=== PATIENT | female | born 1945 | race American Indian/Alaskan Native ===

== ENCOUNTER 2018-11-23 14:03 | Emergency (ER) | payer SELFPAY ==
--- NOTE | 2018-11-23 14:22 | Emergency Department Report ---
Chief Complaint: Dizziness Stated Complaint: BALANCE OFF/DIZZY Time Seen by Provider: 11/23/18 14:17 - HPI History of Present Illness: This is a 73 y.o. female that presents with dizziness. Patient is visiting here from [place]. Patient had an appointment with [facility] this morning. Patient fell in August in [place] and once here. Patient daughter states her mom is not herself and concerned. - Exam Vital Signs: Vital Signs 11/23/18 14:16 Temperature 97.9 F Pulse Rate 79 Respiratory 20 Rate Blood Pressure 149/92 O2 Sat by Pulse 100 Oximetry MSE screening note: Focused history and physical exam performed. Due to findings the following was ordered: labs, ekg, CT of head ED Disposition for MSE Condition: Stable
[2018-11-23 14:52] LABS: Basophils % (Auto) 0.5 % (0.0-1.8); Eosinophils # (Auto) 0.1 K/mm3 (0.0-0.4); Eosinophils % (Auto) 1.3 % (0.0-4.3); Hematocrit 40.4 % (30.3-42.9); Hemoglobin 13.3 gm/dl (10.1-14.3); Lymphocytes # (Auto) 2.1 K/mm3 (1.2-5.4); Lymphocytes % (Auto) 28.6 % (13.4-35.0); Mean Corpuscular HGB Conc 33 % (30-34); Mean Corpuscular Volume 88 fl (79-97); Monocytes # (Auto) 0.5 K/mm3 (0.0-0.8); Monocytes % (Auto) 6.4 % (0.0-7.3); Platelet Count 235 K/mm3 (140-440); Red Blood Count 4.62 M/mm3 (3.65-5.03); Red Cell Distribution Width 14.1 % (13.2-15.2)
--- NOTE | 2018-11-23 15:11 | Cat Scan Report ---
CT HEAD WITHOUT CONTRAST INDICATION: Dizziness, fall. COMPARISON: None similar at this institution. FINDINGS: Noncontrast head CT demonstrates age-appropriate symmetric, mildly enlarged ventricles and sulci. Mild periventricular white matter hypodense small vessel ischemic disease. No definite acute infarct, hemorrhage, mass effect or midline shift. No abnormal extra-axial fluid collections. Normal posterior fossa with preserved basilar cisterns. Normal imaged eye globes. A 0.8 cm left maxillary sinus mucus retention cyst or polyp anteriorly partially imaged. Clear remainder imaged paranasal sinuses and mastoid air cells. Normal calvarium and scalp. Mandible may be edentulous. CONCLUSION: No acute intracranial CT abnormality with age-appropriate atrophy and few other findings, as described. Thank you for the opportunity to participate in this patient's care.
[2018-11-23 15:20] LABS: BUN/Creatinine Ratio 19; Blood Urea Nitrogen 13 mg/dL (7-17); Calcium 9.5 mg/dL (8.4-10.2); Hemolysis Index 19
--- NOTE | 2018-11-23 16:23 | Emergency Department Report ---
ED Neuro Deficit HPI - General Chief Complaint: Dizziness Stated Complaint: BALANCE OFF/DIZZY Time Seen by Provider: 11/23/18 14:17 Source: patient, family, RN notes reviewed Mode of arrival: Ambulatory Limitations: Physical Limitation - History of Present Illness Initial Comments: This is a 73-year-old female, not known to this provider previously. She recently moved here from [place]. She does not have a local primary care doctor. She denies chronic medical conditions that she is aware of. She is brought to the hospital by her daughter for evaluation of unsteady gait for one and half to 2 weeks. This is a painless phenomenon. Patient and daughter indicate that the patient has been staggering, and been off balance. She denies physical pain. The daughter attempted to take the patient to an outpatient [facility] Center earlier on today, but reports that an excessive amount of documentation and paperwork was required, and she felt it would be more prudent to seek emergency evaluation for the sake of expediency. The patient currently denies headache, neck pain, chest pain, abdominal pain, shortness of breath, focal extremity weakness, denies loss of vision, and denies bladder or bowel retention, incontinence. -: Gradual, days(s) Location: ataxia Presenting Symptoms: Absent: Weak/Paralyzed One Side, Sudden, Severe Headache, Blurred/Loss of Vision, Facial Droop/Numbness, Unable to Speak Clearly, Altered Mental Status History of same: No Place: home Severity: moderate Improves With: none Worsens With: none On Anticoagulants: No Context: gradual onset Associated Symptoms: denies other symptoms - Related Data Allergies/Adverse Reactions: Allergies Allergy/AdvReac Type Severity Reaction Status Date / Time No Known Allergies Allergy Unverified 11/23/18 14:15 ED Review of Systems ROS: Stated complaint: BALANCE OFF/DIZZY Other details as noted in HPI Constitutional: denies: fever Eyes: denies: eye discharge ENT: denies: epistaxis Respiratory: denies: cough Cardiovascular: denies: chest pain Gastrointestinal: denies: abdominal pain Genitourinary: denies: dysuria Musculoskeletal: denies: back pain Neurological: abnormal gait ED Past Medical Hx - Past Medical History Previous Medical History?: No - Surgical History Past Surgical History?: No - Social History Smoking Status: Never Smoker Substance Use Type: None ED Neuro Physical Exam - General Limitations: No Limitations General appearance: alert, in no apparent distress Suspected Stroke: Yes - Head Head exam: Present: atraumatic, normocephalic - Eye Eye exam: Present: normal appearance, PERRL, EOMI, other (visual acuity intact to finger counting, color perception, reading at a close distance). Absent: nystagmus - ENT ENT exam: Present: normal exam, normal orophraynx, mucous membranes moist - Neck Neck exam: Present: normal inspection, full ROM. Absent: tenderness, meningismus - Respiratory Respiratory exam: Present: normal lung sounds bilaterally. Absent: respiratory distress - Cardiovascular Cardiovascular Exam: Present: regular rate, normal rhythm, normal heart sounds. Absent: bradycardia, tachycardia, irregular rhythm, systolic murmur, diastolic murmur, rubs, gallop - GI/Abdominal GI/Abdominal exam: Present: soft. Absent: distended, tenderness, guarding, rebound, rigid, pulsatile mass - Extremities Exam Extremities exam: Present: normal inspection, full ROM, other (2+ pulses noted in the bilateral upper, lower extremities. Compartments soft. No long bony tenderness. The pelvis is stable.). Absent: pedal edema, joint swelling, calf tenderness - Back Exam Back exam: Present: normal inspection, full ROM. Absent: tenderness, CVA tenderness (R), paraspinal tenderness, vertebral tenderness - Neurological Exam Neurological exam: Present: alert (there is no past-pointing. There is negative pronator drift. There is normal [id number].), oriented X3, abnormal gait (the patient walks with a broad-based gait. The patient has a positive Romberg examination. The patient is not able to perform a tandem gait, examination.), other (Extraocular movements intact. Tongue midline. No facial droop. Facial sensation intact to light touch in the V1, V2, V3 distribution bilaterally. 5 and 5 strength in 4 extremities.. Sensation is intact to light touch in 4 extremities.). Absent: motor sensory deficit - NIHSS Assessment Interval: Baseline 1a. Level of Consciousness: alert/keenly responsive 1b. LOC Questions: answers both correctly 1c. LOC Commands: performs tasks correctly 2. Best Gaze: normal 3. Visual: no visual loss 4. Facial Palsy: normal symmetrical movement 5b. Motor Arm Right: no drift 5a. Motor Arm Left: no drift 6a. Motor Leg Left: no drift 6b. Motor Leg Right: no drift 7. Limb Ataxia: absent 8. Sensory: normal 9. Best Language: no aphasia 10. Dysarthria: normal 11. Extinction/Inattention: no abnormality Total Score: 0 Stroke Severity: No Stroke Symptoms - Psychiatric Psychiatric exam: Present: normal affect, normal mood - Skin Skin exam: Present: warm, dry, intact, normal color. Absent: rash ED Course Vital Signs 11/23/18 11/23/18 14:16 15:44 Temperature 97.9 F Pulse Rate 79 Respiratory 20 20 Rate Blood Pressure 149/92 O2 Sat by Pulse 100 100 Oximetry - Lab Data Result diagrams: 11/23/18 14:38 11/23/18 14:38 Lab Results 11/23/18 11/23/18 Range/Units 14:38 14:38 WBC 7.3 (4.5-11.0) K/mm3 RBC 4.62 (3.65-5.03) M/mm3 Hgb 13.3 (10.1-14.3) gm/dl Hct 40.4 (30.3-42.9) % MCV 88 (79-97) fl MCH 29 (28-32) pg MCHC 33 (30-34) % RDW 14.1 (13.2-15.2) % Plt Count 235 (140-440) K/mm3 Lymph % (Auto) 28.6 (13.4-35.0) % Moca % (Auto) 6.4 (0.0-7.3) % Eos % (Auto) 1.3 (0.0-4.3) % Baso % (Auto) 0.5 (0.0-1.8) % Lymph # 2.1 (1.2-5.4) K/mm3 Moca # 0.5 (0.0-0.8) K/mm3 Eos # 0.1 (0.0-0.4) K/mm3 Baso # 0.0 (0.0-0.1) K/mm3 Seg Neutrophils % 63.2 (40.0-70.0) % Seg Neutrophils # 4.6 (1.8-7.7) K/mm3 Sodium 140 (137-145) mmol/L Potassium 4.2 (3.6-5.0) mmol/L Chloride 100.9 (98-107) mmol/L Carbon Dioxide 25 (22-30) mmol/L Anion Gap 18 mmol/L BUN 13 (7-17) mg/dL Creatinine 0.7 (0.7-1.2) mg/dL Estimated GFR > 60 ml/min BUN/Creatinine Ratio 19 % Glucose 83 (65-100) mg/dL Calcium 9.5 (8.4-10.2) mg/dL - EKG Data -: EKG Interpreted by Me EKG shows normal: sinus rhythm Rate: normal When compared to previous EKG there are: previous EKG unavailable 11/23/18 17:06 Sinus rhythm, 82 bpm, QTC within normal limits, high left ventricular voltage, motion artifact, question Q waves in the inferior leads, this is an abnormal EKG, there is no prior for comparison, this is not consistent with ST elevation myocardial infarction. - Radiology Data Radiology results: report reviewed, image reviewed Noncontrast CT scan of the brain is negative for acute disease - Medical Decision Making Differential diagnosis, including but not limited to: Subacute stroke, peripheral vestibulopathy, peripheral neuropathy Assessment and plan: 73-year-old female, recently moved here from [place], very limited access outpatient primary care, with subacute sensation of ataxia, pertinent physical exam findings include positive Romberg examination, and an inability to perform a tandem gait, examination. Symptoms present for greater than 4.5 hours, therefore not a TPA candidate. Symptoms present for greater than 24 hours, therefore, endovascular intervention is not indicated. We have recommended admission to the hospital to evaluate for potential subacute stroke. I discussed this with the patient and family who verbalized understanding. We have obtained a neurology consultation, Dr. James Tapia, who is in agreement that patient does not qualify for TPA, or emergent imaging for large vessel occlusion, given the aforementioned physical exam findings, and duration of symptoms, but agrees that subacute stroke should be excluded. Case is presented to the Hospital physician, Dr. Sánchez Bhat, for admission to evaluate for presumed subacute stroke. - Core Measures Measure Exclusions: not indicated - Thrombolytic Inclusion/Exclusion Thrombolytic Exclusion Criteria: Symptom Onset > 3 Hours Critical care attestation.: If time is entered above; I have spent that time in minutes in the direct care of this critically ill patient, excluding procedure time. ED Disposition Clinical Impression: Unsteady gait Disposition: OP ADMIT IP TO THIS HOSP Is pt being admited?: Yes Does the pt Need Aspirin: Yes Condition: Good Referrals: [facility], MD [Primary Care Provider] - 3-5 Days
--- NOTE | 2018-11-23 16:45 | Consultation ---
History of Present Illness Consult date: 11/23/18 History of present illness: 73 y/o woman presents with 1.5-2 weeks of gait difficulty. STAT teleneurology consult requested. CT head reviewed and case discussed with ED staff Medications and Allergies Allergies Allergy/AdvReac Type Severity Reaction Status Date / Time No Known Allergies Allergy Unverified 11/23/18 14:15 Physical Examination - Vital Signs Vital Signs: Vital Signs Temp Pulse Resp BP Pulse Ox 97.9 F 79 20 149/92 100 11/23/18 14:16 11/23/18 14:16 11/23/18 14:16 11/23/18 14:16 11/23/18 14:16 - Level of Consciousness 1a. Level of Consciousness: alert/keenly responsive - LOC Questions 1b. LOC Questions: answers both correctly - LOC Command 1c. LOC Commands: performs tasks correctly - Best Gaze 2. Best Gaze: normal - Visual 3. Visual: no visual loss - Facial Palsy 4. Facial Palsy: normal symmetrical movement - Motor Arm 5a. Motor Arm Left: no drift 5b. Motor Arm Right: no drift - Motor Leg 6a. Motor Leg Left: no drift 6b. Motor Leg Right: no drift - Limb Ataxia 7. Limb Ataxia: present 2 limbs - Sensory 8. Sensory: normal - Best Language 9. Best Language: no aphasia - Dysarthria 10. Dysarthria: normal - Extinction and Inattention 11. Extinction/Inattention: no abnormality - Scoring Total Score: 2 Stroke Severity: Minor Stroke Results - Laboratory Findings CBC and BMP: 11/23/18 14:38 11/23/18 14:38 Assessment and Plan [facility] Impression: R/O Stroke Differential Diagnosis: 1. Cardioembolic stroke 2. Small vessel disease/lacune 3. Thromboembolic, [id number] mechanism 4. Hypercoagulable state-related infarct 5. Thrombotic mechanism, large artery disease 6. Transient ischemic attack Comments: Last known well: 1.5 - 2 weeks ago Door time:1403 [facility] contacted: [phone] [facility] at bedside: STAT NIHSS assessment time:1638 Discussion: Our recommendations are outlined below. Recommendations: ASA, IV fluids and permissive hypertension (Keep BP < 220/110) Neurochecks PT/OT/ST DVT prophylaxis Follow up with Neurology for further testing/evaluation Medical Decision Making: - Extensive number of diagnosis or management options are considered above. - Extensive amount of complex data reviewed. - High risk of complication and/or morbidity or mortality are associated with differential diagnostic considerations above. - There may be uncertain outcome and increased probability of prolonged functional impairment or high probability of severe prolonged functional impairment associated with some of these differential diagnosis. Medical Data Reviewed: 1.Data reviewed include clinical labs, radiology, Medical Tests; 2.Tests results discussed w/performing or interpreting physician; 3.Obtaining/reviewing old medical records; 4.Obtaining case history from another source; 5.Independent review of image, tracing or specimen.
[2018-11-23] MEDS ORDERED: BABY ASPIRIN PO ONE (17:10)
[2018-11-23 18:00] LABS: Thrombin Time 17.3 Sec. (15.1-19.6)
--- NOTE | 2018-11-23 18:07 | Cat Scan Report ---
PROCEDURE: Head CTA with contrast TECHNIQUE: CTA examination of the head with IV contrast 2-D and 3-D angiographic reconstructions of the head HISTORY: unsteady gait , dizziness, fall COMPARISONS: FINDINGS: Intracranial vessels: Carotid siphon: Slight atherosclerotic change of the right Anterior cerebral: Normal. Middle cerebral: Normal. Posterior cerebral: Normal. Vertebral: Normal. Basilar: Normal. Dural sinuses: Normal. Occlusion: None. Vascular malformations: None. Aneurysm: None. IMPRESSION: No CTA evidence of acute brain vascular pathology This document is electronically signed by Emir Gutierrez MD., November 23 2018 06:05:42 PM ET
[2018-11-23 18:14] LABS: Bilirubin,Urine NEG (Negative); Blood,Urine NEG (Negative); Color,Urine Yellow (Yellow); Hyaline Casts,Urine 1 /LPF; Mucus,Urine FEW /HPF; Protein,Urine <15 mg/dL mg/dL (Negative); Urobilinogen,Urine < 2.0 mg/dL (<2.0)
[2018-11-23 18:17] LABS: INR 0.98 (0.87-1.13)
[2018-11-23 18:46] VITALS: BP 172/97
[2018-11-23 19:10] LABS: Partial Thromboplastin Time 27.4 Sec. (24.2-36.6)
== END 2018-11-23 18:44 | disposition admitted as inpatient to this hospital (09) ==
LOC: ED 14:03
DX: R26.81 Unsteadiness on feet (principal)
CPT/HCPCS: 36415; 70450; 70496; 80048; 81001; 84484; 85025; 85610; 85670; 85730; 93005; 93010; 99284; Q9967